=== PATIENT | male | born 1970 | race Hispanic/Latino ===

== ENCOUNTER 2016-12-02 16:07 | Emergency (ER) | payer OTHER ==
[2016-12-02 16:20] VITALS: BP 107/72; PULSE 71; RESP 18; TEMP 98.2; O2SAT 97
--- NOTE | 2016-12-02 16:31 | C.PDOC ---
History Of Present Illness 46 year old male who presents to the ER with a complaint of pain to the left 5th toe after hitting his left foot against a wooden chair earlier today. Patient reports he has no need for pain medication at this time; denies any weakness or numbness. Time Seen by Provider: 12/02/16 16:27 Chief Complaint (Nursing): Lower Extremity Problem/Injury History Per: Patient History/Exam Limitations: no limitations Onset/Duration Of Symptoms: Hrs Current Symptoms Are (Timing): Still Present Recent travel outside of the [place]: No - Ankle/Foot Description Of Injury: Struck Against Object Past Medical History Reviewed: Historical Data, Nursing Documentation, Vital Signs Vital Signs: Last Vital Signs Temp 98.2 F 12/02/16 16:19 Pulse 71 12/02/16 16:19 Resp 18 12/02/16 16:19 BP 107/72 12/02/16 16:19 Pulse Ox 97 12/02/16 17:30 - Medical History PMH: Asthma Surgical History: No Surg Hx Family History: States: Unknown Family Hx - Social History Hx Alcohol Use: Yes Hx Substance Use: No - Immunization History Hx Tetanus Toxoid Vaccination: No Hx Influenza Vaccination: No Hx Pneumococcal Vaccination: No Review Of Systems Musculoskeletal: Positive for: Foot Pain Neurological: Negative for: Weakness, Numbness Physical Exam - Physical Exam Appears: Non-toxic Skin: Warm, Dry Extremity: Tenderness (w/ ecchymosis to 5th digit of left foot), Other (No tenderness at base of 5th metatarsal of left foot, dorsum of left foot, or ankle of left foot) Pulses: Left Dorsalis Pedis: Normal, Right Dorsalis Pedis: Normal Neurological/Psych: Oriented x3, Normal Speech, Normal Cognition, Normal Motor, Normal Sensation ED Course And Treatment O2 Sat by Pulse Oximetry: 97 (Room air) Pulse Ox Interpretation: Normal Medical Decision Making Medical Decision Making: IMPRESSION: Suspect acute nondisplaced fracture in the base of the distal phalanx of the little toe. Soft tissue swelling in the little toe. toe was sherrie-taped advised pcp follow up Disposition - Disposition Referrals: Devonte Olmstead DO [Primary Care Provider] - Disposition: HOME/ ROUTINE Disposition Time: 17:30 Condition: GOOD Additional Instructions: Please follow up with your doctor. Use ice, tylenol, and ibuprofen as directed for pain. Return to the ER for any worsening symptoms or for any other concerns. Forms: General Discharge Instructions, [facility] ([place]) - Clinical Impression Clinical Impression: Toe injury - Scribe Statement The provider has reviewed the documentation as recorded by the Scribcayden Johnson All medical record entries made by the Scribe were at my direction and personally dictated by me. I have reviewed the chart and agree that the record accurately reflects my personal performance of the history, physical exam, medical decision making, and the department course for this patient. I have also personally directed, reviewed, and agree with the discharge instructions and disposition.
--- NOTE | 2016-12-02 17:44 | RAD ---
PROCEDURE: Radiographs of the left little toe. TECHNIQUE:: AP radiograph of the left foot, with oblique and lateral view of the left little toe. COMPARISON: None. FINDINGS: BONES: There is an apparent cortical step-off and transverse lucency in the base of the distal phalanx of the little toe. Bone alignment and mineralization are normal. There is no bone destruction. JOINTS: Normal. SOFT TISSUES: There is soft tissue swelling in the little toe. OTHER FINDINGS: None. IMPRESSION: Suspect acute nondisplaced fracture in the base of the distal phalanx of the little toe. Soft tissue swelling in the little toe.
== END 2016-12-02 17:41 | disposition home or self-care (01) ==
LOC: C.ER 16:07 → SUPCPDRO 16:07 → C.ER 17:41
DX: S99.922A Unspecified injury of left foot, initial encounter (principal); W22.03XA Walked into furniture, initial encounter